=== PATIENT | female | born 1960 | race Caucasian/White ===

== ENCOUNTER → 2020-08-20 15:41 | Outpatient (CLI) | payer OTHER, SELFPAY ==
--- NOTE | 2020-08-20 15:44 | DI.RAD.S_ITS ---
PROCEDURE: XR SHOULDER LT MIN 2V INDICATIONS: left shoulder pain r/o bony abnormality TECHNIQUE: 3 views of the shoulder were acquired. COMPARISON: None. FINDINGS: Bones: No fractures or dislocations. No suspicious bony lesions. Visualized ribs appear intact. Soft tissues: No suspicious soft tissue calcifications. IMPRESSION: Negative examination. If the patient's pain or other symptoms persist, consider further evaluation with MRI Dictated by: Lawrence Zambrano M.D. on 08/20/2020 at 16:39 Approved by: Lawrence Zambrano M.D. on 08/20/2020 at 16:40
== END ==
PROVIDERS: Referring Provider Physician Assistant; Visit Provider Physician Assistant
DX: M25.512 Pain in left shoulder (principal)
CPT/HCPCS: 73030

== ENCOUNTER 2024-07-23 15:01 | Observation (INO) | payer OTHER, SELFPAY ==
[2024-07-23] VITALS (15 sets, daily range): BP systolic 119–175; BP diastolic 59–84; PULSE 78–100; RESP 13–21; TEMP 36.3–36.9; O2SAT 96–98; BMI 32.8
--- NOTE | 2024-07-23 15:04 | DI.RAD.S_ITS ---
PROCEDURE: XR CHEST 1V INDICATIONS: chest pain TECHNIQUE: One view of the chest was acquired. COMPARISON: None. FINDINGS: Surgical changes and devices: None. Lungs and pleura: Lungs are clear. No pleural effusions or pneumothorax. Mediastinum: Mediastinal contours appear normal. Heart size is normal. Bones and chest wall: No suspicious bony lesions. Overlying soft tissues appear unremarkable. IMPRESSION: No acute cardiopulmonary pathology. Dictated by: Niall Colby M.D. on 07/23/2024 at 16:04 Approved by: Niall Colby M.D. on 07/23/2024 at 16:04
[2024-07-23] MEDS: ASPIRIN 81 MG CHEW TAB 324 MG PO (15:10)
--- NOTE | 2024-07-23 15:10 | EKG_ITS ---
[address] [address] Test Date: 2024-07-23 Pat Name: Nette Lubin Department: [facility] Room: Gender: Female [place] Supervisor: CHELO : 1960 Requested By: Order Number: [id number] Reading MD: Timmy Henriquez Measurements Intervals [place] Rate: 88 P: 69 GA: 144 QRS: 43 QRSD: 90 T: 56 QT: 362 QTc: 438 Interpretive Statements Normal sinus rhythm Electronically Signed On 07-23-2024 15:33:48 PST by Timmy Henriquez
[2024-07-23 15:26] LABS: Add Manual Diff / Slide Review NO; Basophils Absolute Auto 100 /uL (0-100); Basophils Percent Auto 0.8 % (0-2); Eosinophils Absolute Auto 100 /uL (0-450); Eosinophils Percent Auto 1.3 % (2-4); Hematocrit 41.1 % (36-46); Hemoglobin 13.9 g/dL (12.0-16.0); Lymphocytes Absolute Auto 2400 /uL (1100-4500); Lymphocytes Percent Auto 36.6 % (25-40); Mean Corpuscular HGB Conc 33.9 % (30-36); Mean Corpuscular Hemoglobin 31.7 PG (26-34); Mean Corpuscular Volume 93.6 fL (80-100); Monocytes Absolute Auto 500 /uL (0-900); Monocytes Percent Auto 7.6 % (3-14); Neutrophils Absolute Auto 3500 /uL (1500-7000); Neutrophils Percent Auto 53.7 % (50-75); Platelet Count 218 X10^3/uL (150-400); Red Blood Cell Count 4.39 X10^6/uL (4.0-5.2); Red Cell Distribution Width 12.3 % (11.6-14.8); White Blood Cell Count 6.5 X10^3/uL (4.5-11.0)
[2024-07-23 15:33] LABS: Prothrombin Time 11.4 SECONDS (9.4-12.5)
[2024-07-23 15:35] LABS: PTT Partial Thromboplastin Tim 30 SECONDS (25.1-36.5)
[2024-07-23 15:39] LABS: Alanine Aminotransferase 31 IU/L (<35); Albumin 4.9 g/dL (3.5-5.0); Albumin Globulin Ratio 1.5 (1.0-2.8); Alkaline Phosphatase 39 U/L (38-126); Aspartate Aminotransferase 35 IU/L (14-36); BUN Creatinine Ratio 21.6 (6-22); Bilirubin Total 0.4 mg/dL (0.2-1.3); Blood Urea Nitrogen 16 mg/dL (7-17); Calcium 9.7 mg/dL (8.4-10.2); Carbon Dioxide 28 mmol/L (22-32); Chloride 103 mmol/L (98-107); Creatine Kinase 61 U/L (30-135); Estimated Glomerular Filt Rate > 60 mL/min (>60); Globulin 3.3 g/dL (1.7-4.1); Glucose 113 mg/dL (80-110); HEMOLYSIS 19 (0-50); Lipase 91 U/L (23-300); Potassium 3.9 mmol/L (3.4-5.1); Sodium 139 mmol/L (137-145); Total Protein 8.2 g/dL (6.3-8.2)
[2024-07-23 15:50] LABS: NT-proBNP (BNP-Adult 18+) 32 pg/mL (<125); Troponin I < 0.012 ng/mL (0.01-0.034)
--- NOTE | 2024-07-23 15:53 | ED.CHESTPAIN ---
HPI - Chest Pain General Chief Complaint: Chest Pain Stated Complaint: chest pain Time Seen by Provider: 07/23/24 15:13 Source: patient Mode of arrival: Ambulatory Limitations: no limitations History of Present Illness HPI narrative: Patient here with . Complains of brief chest pain less than 1 minute substernal sometimes radiating to the left arm. However left arm discomfort is reproducible with resting her arm on a recliner and then lifting up to relieve the discomfort. Patient has no nausea shortness of breath or sweating. No history of hypertension hyperlipidemia. It has not a smoker. No primary family history of coronary artery disease. 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 More stress than usual. She walks 3 times a week with her on the trails without any chest pain or discomfort. She was on the treadmill today without any chest pain or dyspnea. Patient has low heart score of 1. Patient did have chest discomfort today however none now. Related Data Previous Rx's Medication Instructions Recorded cyclobenzaprine 10 mg tablet 10 mg PO Q8H #30 tabs 08/20/20 Allergies Allergy/AdvReac Type Severity Reaction Status Date / Time No Known Drug Allergies Allergy Verified 07/23/24 15:11 Review of Systems Review of Systems Narrative: GENERAL: Negative chills, fatigue, malaise, fever, sweats. HEENT: Negative sinus pain, ear pain, sore throat RESPIRATORY: Negative dyspnea, cough CARDIOVASCULAR: Positive chest pain, negative palpitations GASTROINTESTINAL: Negative nausea, vomiting, abdominal pain : Negative dysuria, frequency, hematuria MUSCULOSKELETAL: Negative muscle or bony pain SKIN: Negative rash, skin lesions NEUROLOGIC: Negative weakness, numbness ROS Unobtainable: All systems reviewed & are unremarkable except as noted in HPI and below Patient History Medical History Left shoulder pain Social History household members: spouse Smoking Status: Former smoker Smoking Status: Unknown if ever smoked Exam Narrative Exam Narrative: GENERAL: in no distress, not toxic not dyspneic HEAD: Normocephalic. EYES: Pupils equal round ENT: Mucous membranes moist. NECK: Trachea midline. CARDIOVASCULAR: Regular rate and rhythm RESPIRATORY: Clear to auscultation. Breath sounds equal bilaterally. No wheezes, rales, or rhonchi. GASTROINTESTINAL: Abdomen soft, non-tender EXTREMITIES: No gross deformities. BACK: No flank tenderness. NEURO: AOx4. SKIN: Warm and dry PSYCH: Not anxious, is cooperative Initial Vital Signs Initial Vital Signs: Vital Signs Temperature 98.4 F 07/23/24 15:03 Pulse Rate 100 H 07/23/24 15:03 Respiratory Rate 13 07/23/24 15:03 Blood Pressure 175/84 H 07/23/24 15:03 Pulse Oximetry 97 07/23/24 15:03 Oxygen Delivery Method Room Air 07/23/24 15:03 Scores HEART Score Heart Score history: Slightly Suspicious Heart Score EKG: Normal Heart Score Age: 45-64 years old Heart Score risk factors: No known risk factors Heart Score troponin: < or = to normal limit Heart Score Total: 1 Course Orders Ordered: Discontinued Medications Acetaminophen (Acetaminophen 325 Mg Tablet) 650 mg PO Q6H PRN PRN Reason: Fever/Mild Pain (1-3) Aspirin (Aspirin 81 Mg Chew Tab) 324 mg PO NOW ONE Stop: 07/23/24 15:04 Last Admin: 07/23/24 15:10 Dose: 324 mg Documented By: KB Aspirin (Aspirin Ec 81 Mg Tablet) 81 mg PO DAILY CHIRAG Last Admin: 07/24/24 08:31 Dose: 81 mg Documented By: CS Influenza Virus Vaccine (Influenza Vaccine Qiv 0.5 Ml Syringe) 0.5 ml IM .ONCE ONE Stop: 07/23/24 18:01 Last Admin: 07/23/24 18:11 Dose: Not Given Documented By: BT Morphine Sulfate (Morphine 2 Mg/Ml Inj) 2 mg IV Q5MIN PRN PRN Reason: Chest Pain Naloxone HCl (Naloxone 0.4 Mg/Ml Vial) 0.2 mg IV Q2MIN PRN PRN Reason: Opiate Reversal Nitroglycerin (Nitroglycerin 0.4 Mg Sl Tab) 0.4 mg SL [id number] PRN PRN Reason: Chest Pain Sodium Chloride (Sodium Chloride 0.9% Flush) 10 ml IV PRN PRN PRN Reason: Flush Vital Signs Vital signs: Vital Signs - 8 hr 07/23/24 15:03 07/23/24 15:07 07/23/24 15:07 Temperature 98.4 F Pulse Rate 100 H 98 H Respiratory Rate 13 Blood Pressure 175/84 H 175/84 H Pulse Oximetry 97 97 Oxygen Delivery Method Room Air 07/23/24 15:15 07/23/24 15:15 07/23/24 15:30 Temperature Pulse Rate 88 86 Respiratory Rate 20 Blood Pressure 156/68 H Pulse Oximetry 98 97 Oxygen Delivery Method 07/23/24 15:31 07/23/24 15:31 Temperature Pulse Rate 87 Respiratory Rate 32 H Blood Pressure 130/63 Pulse Oximetry 98 Oxygen Delivery Method MDM - Chest Pain Lab Data 07/24/24 05:50 07/24/24 05:50 Labs: Lab Results 07/23/24 Range/Units 15:20 WBC 6.5 (4.5-11.0) X10^3/uL RBC 4.39 (4.0-5.2) X10^6/uL Hgb 13.9 (12.0-16.0) g/dL Hct 41.1 (36-46) % MCV 93.6 (80-100) fL MCH 31.7 (26-34) PG MCHC 33.9 (30-36) % RDW 12.3 (11.6-14.8) % Plt Count 218 (150-400) X10^3/uL Neut % (Auto) 53.7 (50-75) % Lymph % (Auto) 36.6 (25-40) % [place] % (Auto) 7.6 (3-14) % Eos % (Auto) 1.3 L (2-4) % Baso % (Auto) 0.8 (0-2) % Neut # (Auto) 3500 (5265-5367) /uL Lymph # (Auto) 2400 (2478-9968) /uL [place] # (Auto) 500 (0-900) /uL Eos # (Auto) 100 (0-450) /uL Baso # (Auto) 100 (0-100) /uL PT 11.4 (9.4-12.5) SECONDS INR 1.0 (0.9-1.3) APTT 30 (25.1-36.5) SECONDS Sodium 139 (137-145) mmol/L Potassium 3.9 (3.4-5.1) mmol/L Chloride 103 (98-107) mmol/L Carbon Dioxide 28 (22-32) mmol/L BUN 16 (7-17) mg/dL Creatinine 0.74 (0.52-1.04) mg/dL Estimated GFR > 60 (>60) mL/min BUN/Creatinine Ratio 21.6 (6-22) Glucose 113 H (80-110) mg/dL Calcium 9.7 (8.4-10.2) mg/dL Magnesium 2.0 (1.6-2.3) mg/dL Total Bilirubin 0.4 (0.2-1.3) mg/dL AST 35 (14-36) IU/L ALT 31 (<35) IU/L Alkaline Phosphatase 39 (38-126) U/L Total Creatine Kinase 61 (30-135) U/L Troponin I < 0.012 (0.01-0.034) ng/mL NT-Pro-B Natriuret Pep 32 (<125) pg/mL Total Protein 8.2 (6.3-8.2) g/dL Albumin 4.9 (3.5-5.0) g/dL Globulin 3.3 (1.7-4.1) g/dL Albumin/Globulin Ratio 1.5 (1.0-2.8) Lipase 91 (23-300) U/L Imaging Data Chest x-ray: Radiologist's Impression: [place] [address] XRay Report Signed Patient: Nette Lubin MR#: [id number] : 1960 Acct:[id number] Age/Sex: 64 / F Date of Service: 07/23/24 Loc: ED Accession Number: [id number] Procedure: XR chest 1V Ordering Provider: Terry Reyes MD PROCEDURE: XR CHEST 1V INDICATIONS: chest pain TECHNIQUE: One view of the chest was acquired. COMPARISON: None. FINDINGS: Surgical changes and devices: None. Lungs and pleura: Lungs are clear. No pleural effusions or pneumothorax. Mediastinum: Mediastinal contours appear normal. Heart size is normal. Bones and chest wall: No suspicious bony lesions. Overlying soft tissues appear unremarkable. IMPRESSION: No acute cardiopulmonary pathology. Dictated by: Niall Colby M.D. on 07/23/2024 at 16:04 Approved by: Niall Colby M.D. on 07/23/2024 at 16:04 [facility] Narrative Medical decision making narrative: Patient here with . Complains of brief chest pain less than 1 minute substernal sometimes radiating to the left arm. However left arm discomfort is reproducible with resting her arm on a recliner and then lifting up to relieve the discomfort. Patient has no nausea shortness of breath or sweating. No history of hypertension hyperlipidemia. It has not a smoker. No primary family history of coronary artery disease. 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 More stress than usual. She walks 3 times a week with her on the trails without any chest pain or discomfort. She was on the treadmill today without any chest pain or dyspnea. Patient has low heart score of 1 After history and exam CBC CMP troponin EKG chest x-ray MDM Medical records reviewed: No recent visit for this complaint Differential considered: Includes but not limited to STEMI non-STEMI angina costochondritis pleurisy aortic dissection pulmonary embolism Lab Test results independently reviewed as above. Pertinent findings: Troponin less than 0.012 Independently reviewed EKG normal sinus rhythm rate 88 normal EKG Imaging studies independently reviewed: Chest x-ray no acute finding Consultations: 4:[address] Jackson, special education supervisor, patient would benefit getting stress test, treadmill stress test non nuclear and echocardiogram given her age and she is planning to fly to [place] this upcoming Sunday. 4:25 p.m.. Spoke with hospitalist, Dr. Henriquez, he will see patient for admission. Treatments: Aspirin Re-evaluations: 4:10 p.m. Updated patient my discussion with cardiology services. They do desire admission for stress test. Currently chest pain-free Discussion: Appropriate for admission for non nuclear treadmill stress test. Reviewed with special education supervisor in recommends stress test before patient's travel/business travel to [place] this Sunday. Diagnosis: Atypical chest pain Discharge Plan Departure Patient Disposition: Admitted as Observation Clinical Impression: Atypical chest pain Admit Date/Time: 07/23/24 16:24 Admit Provider: Telma Henriquez
--- NOTE | 2024-07-23 16:32 | DI.ECHO.S_ITS ---
[facility]+ [facility] : : [address] : : [place] : : [id number] : : Phone: [phone] Echocardiogram Report + + :Name: LING HENRIQUEZ Study Date: 07/24/2024 Height: 65 in : :[facility] ReadingLocation: Weight: 197 lb : : Gender: Female BSA: 2.0 m2 : :: 1960 Age: 64 yrs BP: 132/78 mmHg: :Reason For Study: CHEST PAIN : :Ordering Physician: IRON, : :BJ Performed By: Kathryn Prado : :Referring: BJ PERDUE : + + Interpretation Summary 1) Normal left ventricular thickness, size, wall motion, and systolic function (EF 60-65%). 2) Normal right ventricular size and function. 3) No significant valvular abnormalities. 4) No prior Echo available for comparison. Procedure: A two-dimensional transthoracic echocardiogram with color flow and Doppler was performed. The study quality was technically adequate. There is no prior echocardiogram noted for this patient. The patient was in sinus rhythm with heart rates between 69-78 bpm during the exam. Left Ventricle: The left ventricle is normal in size and wall thickness. The ejection fraction is estimated to be 60-65%. Left ventricular systolic function appears normal without focal wall motion abnormalities. Diastolic parameters suggest a relaxation abnormality of the left ventricle, consistent with probable normal filling pressures. Right Ventricle: The right ventricle is normal in size and function. Atria: The left atrial size is normal. Right atrial size is normal. There is no Doppler evidence for an interatrial shunt. Mitral Valve: The mitral valve leaflets appear mildly thickened, but open well. There is no mitral regurgitation noted. Aortic Valve: The aortic valve is trileaflet. The aortic valve opens well. There is no aortic valve stenosis. No aortic regurgitation is present. Tricuspid Valve: The tricuspid valve leaflets are thin and pliable. There is trace tricuspid regurgitation. The right ventricular systolic pressure is estimated to be at least 25 mmHg based on an estimated right atrial pressure of 3 mm Hg. Pulmonic Valve: The pulmonic valve is not well visualized. There is no pulmonic valvular regurgitation. Great Vessels: The aortic root is normal size. The ascending aorta could not be visualized. The IVC is of normal diameter and collapses greater than 50% with a sniff. This suggests a low right atrial pressure of 3 mm Hg. Pericardium/ Pleura There is no pericardial effusion. There is no pleural effusion. MMode/2D Measurements & Calculations LVIDd: 4.9 cm LVOT diam: 2.0 cm LVIDs: 3.3 cm Ao root diam: 3.1 cm FS: 32.9 % Ao Arch Diam (Prox Trans): 3.0 cm EPSS: 0.67 cm IVSd: 0.72 cm LVPWd: 0.70 cm LV gonzalez. diameter/BSA (cm/m^2): 2.5 LV sys. diameter/BSA (cm/m^2): 1.7 LA A2 area: 20.3 cm2 RA long axis: 3.9 cm LA A4 area: 12.3 cm2 RA area: 10.9 cm2 LA length (vol): 4.1 cm RA vol: 25.9 ml LA vol: 51.6 ml RA : 13.2 ml/m2 LA vol index: 26.3 ml/m2 IVC diam: 1.9 cm RVD1 (basal): 2.6 cm RVD2 (mid): 1.9 cm TAPSE: 2.1 cm Doppler Measurements & Calculations Ao V2 max: 123.1 cm/sec LVOT Max Jerel: 102.3 cm/sec Ao V2 mean: 81.0 cm/sec LV V1 max P.2 mmHg Ao max P.1 mmHg LV V1 VTI: 21.2 cm Ao mean P.0 mmHg SAADIA(I,D): 2.8 cm2 Ao V2 VTI: 24.6 cm SAADIA(V,D): 2.7 cm2 sev ratio: 0.86 SAADIA indexed to BSA (cm^2/m^2): 1.4 MV E max jerel: 71.8 cm/sec TR max jerel: 236.3 cm/sec MV A max jerel: 63.2 cm/sec TR max P.3 mmHg MV E/A: 1.1 PA V2 max: 78.4 cm/sec Med Peak E' Jerel: 9.1 cm/sec PA V2 mean: 59.1 cm/sec E/E' med: 7.9 PA mean P.5 mmHg Lat Peak E' Jerel: 9.7 cm/sec PA pr(Accel): 15.6 mmHg E/E' lat: 7.4 E/e' average: 7.6 MV dec time: 0.16 sec SV(LVOT): 69.5 ml Reading Physician:10:00 AM
--- NOTE | 2024-07-23 16:32 | DI.NM.S_ITS ---
PROCEDURE: NM EXERCISE TREADMILL NON NUC COMPARISON: None. INDICATIONS: Chest pain FINDINGS: Patient exercised per the standard Charles protocol. Total exercise time was 9 minutes and 37 seconds. Test was terminated secondary to fatigue. Maximal heart rate obtained is 167 bpm which is 106% of max braided heart rate. Maximum blood pressure was 210/[place] [address]. LIGIA -44%. 10.1 METS. No ischemic changes noted. No arrhythmias noted. No chest pains voiced. Normal heart rate with hypertensive blood pressure response to exercise. IMPRESSION: 1. Negative exercise treadmill stress test for ischemia. 2. Above average exercise tolerance. 3. Hypertensive response to exercise. Dictated by: Eh Colby M.D. on 07/24/2024 at 12:20 Approved by: Eh Colby M.D. on 07/24/2024 at 12:21
--- NOTE | 2024-07-23 17:17 | PM.HP.IH.1 ---
History of Present Illness History of Present Illness Date Patient Seen: 07/23/24 Time Patient Seen: 17:02 Date of Onset of Symptoms: 07/23/24 Chief complaint: chest pain Narrative: 64-year-old woman without cardiac risk factors experienced sharp chest pressure lasting approximately 30 minutes after walking on her treadmill, while sitting down at rest today. She also had some intermittent left arm discomfort, that has typically been positional. She is had 5 similar episodes in the past but none of them have been associated with exertion. She notes she is been under considerable stress lately at work. She is seen with her . She has no history of tobacco use, heart disease, or family history of heart disease. She is physically active walking 3 days weekly [place]. She denies shortness of breath, diaphoresis, leg swelling or history of thromboembolic disease. [facility] Medical History Left shoulder pain Social History Smoking Status: Unknown if ever smoked Meds Home Medications and Allergies Home Medications Medication Instructions Recorded Confirmed Type No Known Home Medications 08/20/20 08/20/20 History cyclobenzaprine 10 mg tablet 10 mg PO Q8H #30 tabs 08/20/20 08/20/20 Rx Allergies Allergy/AdvReac Type Severity Reaction Status Date / Time No Known Drug Allergies Allergy Verified 07/23/24 15:11 Review of Systems Review of Systems ROS: Yes All systems reviewed with the patient and are negative except as otherwise documented Exam Vital Signs (past 8 hours): - 07/23/24 15:03 07/23/24 15:07 07/23/24 15:07 Temperature 98.4 F Pulse Rate 100 H 98 H Respiratory Rate 13 Blood Pressure 175/84 H 175/84 H Pulse Oximetry 97 97 Oxygen Delivery Method Room Air 07/23/24 15:15 07/23/24 15:15 07/23/24 15:30 Temperature Pulse Rate 88 86 Respiratory Rate 20 Blood Pressure 156/68 H Pulse Oximetry 98 97 Oxygen Delivery Method 07/23/24 15:31 07/23/24 15:31 07/23/24 15:45 Temperature Pulse Rate 87 Respiratory Rate Blood Pressure 130/63 131/60 Pulse Oximetry 98 Oxygen Delivery Method 07/23/24 15:45 07/23/24 16:00 07/23/24 16:00 Temperature Pulse Rate 82 83 Respiratory Rate 16 19 Blood Pressure 119/59 L Pulse Oximetry 97 97 Oxygen Delivery Method 07/23/24 16:16 07/23/24 16:16 07/23/24 16:30 Temperature Pulse Rate 80 83 Respiratory Rate 19 19 Blood Pressure 159/73 H Pulse Oximetry 98 98 Oxygen Delivery Method 07/23/24 16:30 07/23/24 16:45 07/23/24 16:45 Temperature Pulse Rate 83 Respiratory Rate 17 Blood Pressure 141/72 H 142/66 H Pulse Oximetry 98 Oxygen Delivery Method 07/23/24 17:00 07/23/24 17:01 07/23/24 17:01 Temperature Pulse Rate 82 79 Respiratory Rate 18 21 Blood Pressure 140/73 Pulse Oximetry 98 97 Oxygen Delivery Method Oxygen Delivery Method Room Air Narrative Exam Narrative: GENERAL: This is a well-nourished, well-developed patient, in no apparent distress. HEAD: Atraumatic. Normocephalic. No temporal or scalp tenderness. EYES: Pupils equal round and reactive. Extraocular motions intact. No scleral icterus. No injection or drainage. ENT: Mucous membranes pink and moist. NECK: Trachea midline. No JVD, bruits or lymphadenopathy. Supple, nontender, no meningeal signs. CARDIOVASCULAR: Regular rate and rhythm without murmurs, gallops, or rubs. RESPIRATORY: Clear to auscultation. GASTROINTESTINAL: Abdomen soft, non-tender, nondistended. EXTREMITIES: No clubbing, cyanosis, or edema. BACK: Nontender without deformity or crepitance. No flank tenderness. NEUROLOGIC: Alert, oriented, speech fluent, full upper and lower motor strength, no focal deficits evident. DERMATOLOGIC: No rashes or skin lesions. Objective ECG Impression: Normal sinus rhythm at 88 beats per minute, no ischemic changes. Normal EKG. Imaging Chest x-ray: Radiologist's impression: No acute cardiopulmonary pathology.. Labs 07/23/24 15:20 07/23/24 15:20 Labs: Laboratory Results - last 24 hr 07/23/24 15:20 WBC 6.5 RBC 4.39 Hgb 13.9 Hct 41.1 MCV 93.6 MCH 31.7 MCHC 33.9 RDW 12.3 Plt Count 218 Neut % (Auto) 53.7 Lymph % (Auto) 36.6 [place] % (Auto) 7.6 Eos % (Auto) 1.3 L Baso % (Auto) 0.8 Neut # (Auto) 3500 Lymph # (Auto) 2400 [place] # (Auto) 500 Eos # (Auto) 100 Baso # (Auto) 100 PT 11.4 INR 1.0 APTT 30 Sodium 139 Potassium 3.9 Chloride 103 Carbon Dioxide 28 BUN 16 Creatinine 0.74 Estimated GFR > 60 BUN/Creatinine Ratio 21.6 Glucose 113 H Calcium 9.7 Magnesium 2.0 Total Bilirubin 0.4 AST 35 ALT 31 Alkaline Phosphatase 39 Total Creatine Kinase 61 Troponin I < 0.012 NT-Pro-B Natriuret Pep 32 Total Protein 8.2 Albumin 4.9 Globulin 3.3 Albumin/Globulin Ratio 1.5 Lipase 91 Assessment & Plan Assessment & Plan narrative: 1. Atypical chest pain. Overall the patient is low risk. Emergency department consult cardiology and she was recommended to be admitted overnight on telemetry with serial cardiac enzymes and undergo standard non nuclear treadmill testing tomorrow. The patient is agreeable with this plan of care. Plan: -admit to observation -serial cardiac enzymes -monitor on telemetry -non nuclear treadmill testing tomorrow Quality MIPS - Admit I confirm the patient?s Advance Care Plan is present, Code status is documented, Surrogate decision maker is in patient?s record [If Yes, STOP here]: Yes [facility] - Meds 'Current medications' to include all prescriptions, [id number] products, herbals, cannabis/cannabidiol products, and vitamin/mineral/dietary (nutritional) supplements. I have utilized all available resources to obtain, update, or review the patient?s current medications. [If Yes, STOP here]: Yes [facility] Clinical Admissions Manager Document charge(s): No Charge Codes Initial inpatient/observation care: [id number]
[2024-07-23 18:43] LABS: Troponin I < 0.012 ng/mL (0.01-0.034)
[2024-07-24 01:00] VITALS: BP 133/84; PULSE 72; RESP 18; TEMP 36.6; O2SAT 95
[2024-07-24 02:19] LABS: Troponin I < 0.012 ng/mL (0.01-0.034)
[2024-07-24 05:50] VITALS: BP 132/78; PULSE 71; RESP 18; TEMP 36.2; O2SAT 96
[2024-07-24 06:12] LABS: Add Manual Diff / Slide Review NO; Basophils Absolute Auto 0 /uL (0-100); Basophils Percent Auto 0.7 % (0-2); Eosinophils Absolute Auto 200 /uL (0-450); Hematocrit 38.2 % (36-46); Hemoglobin 13.1 g/dL (12.0-16.0); Lymphocytes Absolute Auto 2800 /uL (1100-4500); Lymphocytes Percent Auto 51.1 % (25-40); Mean Corpuscular HGB Conc 34.3 % (30-36); Mean Corpuscular Hemoglobin 31.7 PG (26-34); Mean Corpuscular Volume 92.5 fL (80-100); Monocytes Absolute Auto 500 /uL (0-900); Neutrophils Absolute Auto 2000 /uL (1500-7000); Neutrophils Percent Auto 36.2 % (50-75); Platelet Count 163 X10^3/uL (150-400); Red Blood Cell Count 4.13 X10^6/uL (4.0-5.2); Red Cell Distribution Width 12.4 % (11.6-14.8); White Blood Cell Count 5.4 X10^3/uL (4.5-11.0)
[2024-07-24 06:27] LABS: BUN Creatinine Ratio 26.7 (6-22); Blood Urea Nitrogen 16 mg/dL (7-17); Calcium 8.8 mg/dL (8.4-10.2); Carbon Dioxide 26 mmol/L (22-32); Chloride 106 mmol/L (98-107); Cholesterol 199 mg/dL (140-199); Estimated Glomerular Filt Rate > 60 mL/min (>60); Glucose 106 mg/dL (80-110); HDL Cholesterol 54 mg/dL (40-60); HEMOLYSIS < 15 (0-50); LDL Cholesterol Calculated 127 mg/dL (<100); Potassium 3.9 mmol/L (3.4-5.1); Sodium 138 mmol/L (137-145); Triglycerides 88 mg/dL (35-150)
[2024-07-24 06:36] LABS: Troponin I < 0.012 ng/mL (0.01-0.034)
[2024-07-24] MEDS: ASPIRIN EC 81 MG TABLET PO (08:31)
[2024-07-24 09:00] VITALS: BP 112/71; PULSE 97; RESP 22; O2SAT 99
--- NOTE | 2024-07-24 12:47 | PM.DS.1 ---
History of Present Illness History of Present Illness Chief complaint: chest pain Narrative: From H&P: 64-year-old woman without cardiac risk factors experienced sharp chest pressure lasting approximately 30 minutes after walking on her treadmill, while sitting down at rest today. She also had some intermittent left arm discomfort, that has typically been positional. She is had 5 similar episodes in the past but none of them have been associated with exertion. She notes she is been under considerable stress lately at work. She is seen with her . She has no history of tobacco use, heart disease, or family history of heart disease. She is physically active walking 3 [place] She denies shortness of breath, diaphoresis, leg swelling or history of thromboembolic disease. Discharge Providers Provider Date of admission: 07/23/24 16:24 Discharge Date: 07/24/24 Primary care physician: Lopez Mercado MD Consults: None. Discharge provider: Aron Ashton MD Summary Hospital Course Discharge Diagnosis: 1. Atypical chest pain. Low risk stress test completed. Hospital Course: She was admitted with atypical chest pain and underwent serial troponins which were normal. She was monitored on telemetry which is normal. She had a normal echo and low risk stress test as well. I discussed results with her and she will follow up with her PCP within the next week and work on stress reduction strategies. Status at Discharge Cognitive/behavioral status at discharge: oriented Functional status at discharge: independent ambulation Overall status at discharge: patient is back to baseline Time Spent with Patient Time spent: Greater than 30 minutes Exam Vital Signs (past 8 hours): - 07/24/24 05:50 07/24/24 09:00 Temperature 97.2 F L Pulse Rate 71 97 H Respiratory Rate 18 22 Blood Pressure 132/78 112/71 Pulse Oximetry 96 99 Oxygen Flow Rate 0 0 Oxygen Delivery Method Room Air Oxygen Flow Rate 0 Narrative Exam Narrative: NAD, alert and oriented. Fluent speech. Lungs are clear, normal rate and effort. Heart is regular, no murmur gallop or rub. Abdomen is soft, non distended. Extremities are free of edema. Objective ECG Impression: Normal sinus rhythm Imaging Multiple studies:: Radiologist's impression: Echo: 1) Normal left ventricular thickness, size, wall motion, and systolic function (EF 60-65%). 2) Normal right ventricular size and function. 3) No significant valvular abnormalities. 4) No prior Echo available for comparison. Stress test: Low risk study Chest x-ray: No acute cardiopulmonary pathology. Labs 07/24/24 05:50 07/24/24 05:50 Labs: Laboratory Results - last 24 hr 07/23/24 07/23/24 07/24/24 15:20 18:12 01:40 WBC 6.5 RBC 4.39 Hgb 13.9 Hct 41.1 MCV 93.6 MCH 31.7 MCHC 33.9 RDW 12.3 Plt Count 218 Neut % (Auto) 53.7 Lymph % (Auto) 36.6 [place] % (Auto) 7.6 Eos % (Auto) 1.3 L Baso % (Auto) 0.8 Neut # (Auto) 3500 Lymph # (Auto) 2400 [place] # (Auto) 500 Eos # (Auto) 100 Baso # (Auto) 100 PT 11.4 INR 1.0 APTT 30 Sodium 139 Potassium 3.9 Chloride 103 Carbon Dioxide 28 BUN 16 Creatinine 0.74 Estimated GFR > 60 BUN/Creatinine Ratio 21.6 Glucose 113 H Calcium 9.7 Magnesium 2.0 Total Bilirubin 0.4 AST 35 ALT 31 Alkaline Phosphatase 39 Total Creatine Kinase 61 Troponin I < 0.012 < 0.012 < 0.012 NT-Pro-B Natriuret Pep 32 Total Protein 8.2 Albumin 4.9 Globulin 3.3 Albumin/Globulin Ratio 1.5 Triglycerides Cholesterol LDL Cholesterol, Calc HDL Cholesterol Lipase 91 07/24/24 05:50 WBC 5.4 RBC 4.13 Hgb 13.1 Hct 38.2 MCV 92.5 MCH 31.7 MCHC 34.3 RDW 12.4 Plt Count 163 Neut % (Auto) 36.2 L Lymph % (Auto) 51.1 H [place] % (Auto) 9.0 Eos % (Auto) 3.0 Baso % (Auto) 0.7 Neut # (Auto) 2000 Lymph # (Auto) 2800 [place] # (Auto) 500 Eos # (Auto) 200 Baso # (Auto) 0 PT INR APTT Sodium 138 Potassium 3.9 Chloride 106 Carbon Dioxide 26 BUN 16 Creatinine 0.60 Estimated GFR > 60 BUN/Creatinine Ratio 26.7 H Glucose 106 Calcium 8.8 Magnesium Total Bilirubin AST ALT Alkaline Phosphatase Total Creatine Kinase Troponin I < 0.012 NT-Pro-B Natriuret Pep Total Protein Albumin Globulin Albumin/Globulin Ratio Triglycerides 88 Cholesterol 199 LDL Cholesterol, Calc 127 H HDL Cholesterol 54 Lipase PFSH Medical History Left shoulder pain Social History household members: spouse Smoking Status: Former smoker Discharge Assessment & Plan Assessment and Plan Assessment: Atypical chest pain, resolved. She would normal echo and a low risk stress test. Plan of Treatment: Discharge home with reassurance. We discussed her current high levels of stress at length and she was some strategies to work on 2 attempt to decrease her stress levels. Recommend primary care follow up within the next week. Discharge Plan Discharge Plan Patient Disposition: Home Provider Discharge Comment: Stable for discharge home. Negative stress test and echo. Discharge orders & Medications Prescriptions: Continued cyclobenzaprine 10 mg tablet 10 mg PO Q8H Qty: 30 0RF Follow up/Referrals: Miscellaneous,[facility] [Non-Staff] - Lopez Mercado MD [Primary Care Provider] - Diet/Activity/Treatments Diet: Regular Activity: As tolerated Visit Report/Discharge Packet Instructions: DI for Atypical Chest Pain Stand Alone Forms: Congestive Heart Failure, Patient Portal/API, Stroke Signs & Symptoms Discharge Data Primary Care Provider: Lopez Mercado Attending Provider: Telma Henriquez Admit Date/Time: 07/23/24 16:24
== END 2024-07-24 13:05 | disposition home or self-care (01) ==
LOC: ED 16:10 → AC 16:25
PROVIDERS: Internal Medicine; Admitting Provider Family Medicine; Emergency Provider Emergency Medicine; PCP Family Medicine; Referring Provider Emergency Medicine; Visit Provider Family Medicine
DX: R07.89 Other chest pain (principal); Z87.891 Personal history of nicotine dependence
CPT/HCPCS: 36415; 71045; 80048; 80053; 80061; 82550; 83690; 83735; 83880; 84484; 85025; 85610; 85730; 93005; 93017; 93306; 99284; 99406; G0378